=== PATIENT | female | born 1955 | race Caucasian/White ===

== ENCOUNTER → 2020-04-01 14:20 | Outpatient (CLI) | payer BC, SELFPAY ==
--- NOTE | ~2020-04-01 | MM_ITS ---
EXAMINATION: MM screening [place] BI w scott HISTORY: Screening mammogram TECHNIQUE: Craniocaudal and mediolateral oblique 3-D tomosynthesis images were obtained and synthetic 2-D images were generated. CAD analysis was submitted and interpreted. COMPARISON: 03/12/2019, 01/24/2018, 12/29/2016 bilateral digital screening mammogram examinations BREAST PARENCHYMAL COMPOSITION: There are scattered areas of fibroglandular density. FINDINGS: There is asymmetry in the anterior upper right breast on screening MLO view. Diagnostic rig ht mammogram is recommended, with ultrasound if required. Otherwise there Is no evidence of suspicious mass, calcification, or architectural distortion to sugg est malignancy in either breast. There has been no other suspicious interval change. Occasional benig n calcifications. IMPRESSION: 1. Upper anterior right breast mammographic asymmetry on MLO view 2. Diagnostic right mammogram is recommended, with ultrasound if required. BI-RADS Category 0: Incomplete: Needs additional imaging evaluation. Reviewed, dictated and finalized at location A.
== END ==
PROVIDERS: PCP Internal Medicine; Visit Provider Obstetrics & Gynecology Gynecology
DX: Z12.31 Encounter for screening mammogram for malignant neoplasm of breast (principal); R92.8 Other abnormal and inconclusive findings on diagnostic imaging of breast
CPT/HCPCS: 77063; 77067

== ENCOUNTER → 2020-04-21 09:25 | Outpatient (CLI) | payer BC, SELFPAY ==
--- NOTE | ~2020-04-21 | MMUS_ITS ---
EXAMINATION: MM diagnostic mammo unilat RT, US breast RT limited HISTORY: Follow-up right breast asymmetry TECHNIQUE: Additional 3-D tomosynthesis images of the right breast were performed and synthetic 2-D i mages were generated. CAD analysis was submitted and interpreted. High resolution Limited right breas t ultrasound was performed. COMPARISON: Comparison to multiple prior studies sequentially, with oldest reviewed study dated 03/2016. BREAST PARENCHYMAL COMPOSITION: Breast composed of scattered areas of fibroglandular density. FINDINGS: MAMMOGRAPHIC FINDINGS: There are no suspicious masses, calcifications or architectural distortion in the right breast to sug gest malignancy. Limited right breast ultrasound: At 11:00, 6 cm from the nipple there is an oval circumscribed slight ly hyperechoic mass with internal septations measuring up to 1.2 cm, compatible with lipoma. At 12:00 , 6 cm from the nipple there is a 4 mm cyst. No suspicious masses to suggest malignancy. IMPRESSION: 1. No evidence for malignancy in the right breast. 2. Routine yearly screening mammogram and regular clinical breast examination are recommended. BI-RADS Category 2: Benign finding(s). Reviewed, dictated and finalized at location A. IMPRESSION: 1. No evidence for malignancy in the right breast. 2. Routine yearly screening mammogram and regular clinical breast examination a re recommended. BI-RADS Category 2: Benign finding(s).
== END ==
PROVIDERS: PCP Internal Medicine; Visit Provider Obstetrics & Gynecology Gynecology
DX: R92.8 Other abnormal and inconclusive findings on diagnostic imaging of breast (principal)
CPT/HCPCS: 76642; 77065

== ENCOUNTER → 2020-11-19 03:52 | Outpatient (CLI) | payer OTHER, SELFPAY ==
[2020-11-19 19:37] LABS: SARS-CoV-2 RNA PCR Negative
== END ==
PROVIDERS: PCP Internal Medicine; Visit Provider Obstetrics & Gynecology Gynecology
DX: Z20.822 Contact with and (suspected) exposure to COVID-19 (principal)
CPT/HCPCS: C9803; U0003; U0005

== ENCOUNTER 2020-11-22 01:47 | Day surgery (SDC) | payer OTHER, SELFPAY ==
[2020-11-11 11:32] VITALS: BMI 31.6
[2020-11-22 06:27] VITALS: BP 121/75; PULSE 76; RESP 16; TEMP 36.1; O2SAT 98
[2020-11-22] MEDS: ACETAMINOPHEN 500 MG TABLET 1000 MG PO (06:46)
--- NOTE | 2020-11-22 06:48 | P.PNAN_ITS ---
Anes - Initial Pre Proc Eval Procedure: Operation Date: 11/22/20 07:30 Proposed Procedures p Hysteroscopy, Dilation and Curettage - Lala Urbina MD Date/Time: 11/22/20 06:48 Surgeon: Lala Urbina MD Pre Op Diagnosis: thickened endometrium Patient Data Age: 65 Gender: F Height: 1.83 m Weight: 104.7 kg Last Vital Signs Temp 36.1 C L 11/22/20 06:27 Pulse 76 11/22/20 06:27 Resp 16 11/22/20 06:27 BP 121/75 11/22/20 06:27 Pulse Ox 98 11/22/20 06:27 Allergies Allergy/AdvReac Type Severity Reaction Status Date / Time oxycodone [From Percocet] AdvReac Intermediate Nausea Verified 11/11/20 11:28 Penicillins AdvReac Mild Other Verified 11/11/20 11:28 Home Medications Medication Instructions Recorded Confirmed Type No Home Medications 11/11/20 11/22/20 History Patient hx anesthesia problems: none Family hx anesthesia problems: none [facility] Past Medical History Medical History (Updated 11/22/20 @ 06:50 by Henry Payne MD) Endometriosis Obesity MILLY on CPAP Osteoarthritis Social History Social History Smoking status: Never smoker Alcohol intake: current Drinks per week: 2 Substance use: never Substance use type: does not use Living arrangements: with family Spiritual care concerns: No Anes - Eval Final PreProcedure Day of Procedure 11/22/20 06:48 Patient weight: overweight Heart: regular rate and rhythm Lungs: clear to auscultation and normal air movement Airway: Mallampati scale class II Neurological: alert and oriented Last oral intake: >/= 8 hours ASA classification: II Emergent: no Anesthetic plan: proceed Anesthesia type and monitoring: general GIVS and LMA Informed Consent: The patient's anesthetic plan and its attendant risks and benefits were discussed with the patient/family/POA. Questions were solicited and answers provided to the satisfaction of the patient/family/POA.
[2020-11-22] MEDS: LACTATED RINGERS 1,000 ML 30 ML IV CONT (07:01)
--- NOTE | 2020-11-22 07:10 | P.HP_ITS ---
History of Present Illness History of Present Illness Consent: Risks, benefits, and alternatives have been discussed and questions answered. Patient agrees to proceed with procedure. Chief complaint: thickened endometrium Narrative: Getachew Thomas is a 65 year old female who was admitted for a kandice rectal abscess. The patient had a CT scan at that time which revealed a thickened endometrium of 16mm. The patient states she has had no vaginal bleeding. Is recommended to further evaluate with hysteroscopy D&C. Risks of infection, bleeding, the and perforation were reviewed. Possible pathology was discussed with the patient. The potential for inability to enter the cervix due to severe stenosis of the vagina and cervix was also reviewed. Patient voices understanding and agrees to proceed. [facility] Past Medical History Medical History (Updated 11/22/20 @ 07:16 by Lala Urbina MD) Endometriosis (normal spontaneous vaginal delivery) x2 Obesity MILLY on CPAP Osteoarthritis Surgical History Surgical History (Updated 11/22/20 @ 07:14 by Lala Urbina MD) S/P eye surgery detached left retina retinal tear right cataracts S/P laparoscopy x 3 Social History Social History Smoking status: Never smoker Alcohol intake: current Drinks per week: 2 Substance use: never Substance use type: does not use Living arrangements: with family Spiritual care concerns: No Meds Home Medications and Allergies Home Medications Medication Instructions Recorded Confirmed Type No Home Medications 11/11/20 11/22/20 History Allergies Allergy/AdvReac Type Severity Reaction Status Date / Time oxycodone [From Percocet] AdvReac Intermediate Nausea Verified 11/11/20 11:28 Penicillins AdvReac Mild Other Verified 11/11/20 11:28 Vital Signs Vital Signs - 24 hr 11/22/20 06:27 Temperature 97 F L Pulse Rate 76 Respiratory Rate 16 Blood Pressure 121/75 Pulse Oximetry 98 Exam Const: General: healthy appearing and alert Orientation/consciousness: patient oriented x3 Resp: Effort & Inspection: normal respiratory effort Auscultation: clear to auscultation bilaterally Cardio: Rate: regular rate Rhythm: regular rhythm GI: GI Palp: Yes Soft to palpation, No Tenderness to palpation present (GI) and No Palpable mass present : External Female Exam: normal external appearance Speculum Exam - Vagin a: vagina atrophic (very hard to open speculum) Speculum Exam - Cervix: normal palpation Bimanual exam- vagina & uterus: uterine size normal and consistency normal Bimanual Exam- Adnexa, other: normal adnexae and No adnexal tenderness Neuro: General: patient oriented x3 Assessment and Plan Assessment and plan (1) Thickened endometrium: Code(s): R93.89 - Abnormal findings on diagnostic imaging of other specified body structures Status: Acute Assessment and Plan: Plan to proceed with hysteroscopy and D&C
--- NOTE | 2020-11-22 07:16 | WPDHPUPDATE1 ---
History and Physical Update Update Date/Time: 11/22/20 07:16 History and Physical has been reviewed, including an updated exam of the patient. There are NO changes in the patient's condition. Risks, benefits, and alternatives have been discussed and questions answered. Patient agrees to proceed with procedure.
--- NOTE | 2020-11-22 08:13 | PM.PROC ---
Procedure Note - Detailed Date of procedure: 11/22/20 Pre-op diagnosis: thickened endometrium Post-op diagnosis: same Procedure performed: D and C hysteroscopy with MyoSure resection of polyp Description of procedure: The patient was taken to the operating room and placed in the dorsal lithotomy position. She was prepped and draped in the usual sterile fashion. A bivalve speculum was placed in the vagina and the cervix is grasped on the anterior lip with a tenaculum. The external cervix has a 2 endocervical polyps that are removed with a ring forceps. The uterus is sounded to 9 in have cm. The cervix is serially dilated with Hegar. The diagnostic hysteroscope was placed with the stated findings below. The MyoSure device was opened and placed and the polyp was removed in its entirety. The hysteroscope was removed and the sharp curette used to curette the endometrium until a good uterine cry is noted on all areas. Minimal material is obtained during that process consistent with the atrophic appearance of the remainder of the endometrium. All instruments are removed. Sponge, instrument, and needle counts are correct per the OR staff. Anesthesia: MAC and local Surgeon: Lala Urbina MD Estimated blood loss (mL): 5 Drains: No Packing: No Pathology: yes (Endometrial shavings and curettings; endocervical polyps) Complications: No immediate complications Condition: stable Disposition: PACU Findings: 2 polyps at 9:00 on the cervix; large polyp arising from the right mid fundus filling the entire cavity. Remainder of the endometrium appears atrophic
[2020-11-22 08:14] VITALS: BP 114/63; PULSE 77; RESP 16; O2SAT 97
[2020-11-22 08:50] VITALS: BP 123/72; PULSE 64; RESP 16
[2020-11-22 09:05] VITALS: BP 116/71; PULSE 60; RESP 16
== END 2020-11-22 09:21 | disposition home or self-care (01) ==
PROVIDERS: PCP Internal Medicine; Visit Provider Obstetrics & Gynecology Gynecology
PROC: 0U5B8ZZ Destruction of Endometrium, Via Natural or Artificial Opening Endoscopic (ICD-10-PCS; CPT 58563; principal; 2020-11-22 07:30)
DX: N84.0 Polyp of corpus uteri (principal); G47.33 Obstructive sleep apnea (adult) (pediatric); M19.90 Unspecified osteoarthritis, unspecified site; E66.9 Obesity, unspecified; Z68.31 Body mass index [BMI] 31.0-31.9, adult
CPT/HCPCS: 58558; 88305; A9270; J2250; J2704; J3010; J7030; J7120

== ENCOUNTER → 2021-04-05 09:48 | Outpatient (CLI) | payer OTHER, SELFPAY ==
--- NOTE | ~2021-04-05 | MM_ITS ---
EXAMINATION: MM screening [place] BI w [facility]ott HISTORY: Screening TECHNIQUE: Craniocaudal and mediolateral oblique 3-D tomosynthesis images were obtained and synthetic 2-D images were generated. CAD analysis was submitted and interpreted. COMPARISON: Comparison to multiple prior studies sequentially, with oldest reviewed study dated 12/29. BREAST PARENCHYMAL COMPOSITION: There are scattered areas of fibroglandular density. FINDINGS: There is no evidence of suspicious mass, calcification, or architectural distortion to sugg est malignancy in either breast. There has been no suspicious interval change. IMPRESSION: 1. No mammographic evidence of malignancy. 2. Recommend routine screening mammography in one year. BI-RADS Category 1: Negative Reviewed, dictated and finalized at location A.
--- NOTE | ~2021-04-05 | DEXA_ITS ---
Bone Density Report Name: Getachew Thomas Age: 65 Sex: Female Ethnicity: White Date of : 1955 Indication: monitoring treatment; postmenopausal Referring Provider: AURORA FIGUEREDO Study: Bone densitometry was performed. Exam Date: April 05, 2021 Accession number: [id number] Bone Density: Region BMD T-score Z-score Classification AP Spine (L1-L4) 0.909 -1.3 0.5 Osteopenia Femoral Neck (Left) 0.727 -1.1 0.4 Osteopenia Total Hip (Left) 0.818 -1.0 0.2 Normal Femoral Neck (Right) 0.715 -1.2 0.3 Osteopenia Total Hip (Right) 0.837 -0.9 0.3 Normal Total Hip Mean 0.828 -1.0 0.3 Normal World Health Organization criteria for BMD impression classify patients as: Normal (T-score at or above -1.0), Osteopenia (T-score between -1.0 and -2.5), or Osteoporosis (T-score at or below -2.5). 10-year Fracture Risk: FRAX not reported because: Treated for osteoporosis Previous Exams: Region Exam Age BMD T-score BMD Change BMD Change Date g/cm2 vs Baseline vs Previous AP Spine(L1-L4) 04/05/2021 65 0.909 -1.3 -0.082 -0.023* 01/14/2018 62 0.932 -1.0 -0.059 0.027 12/16/2015 60 0.905 -1.3 -0.085* 0.005 10/14/2013 58 0.900 -1.3 -0.091* -0.091* 08/27/2009 54 0.991 -0.5 Total Hip(Left) 04/05/2021 65 0.818 -1.0 -0.047 -0.035* 01/14/2018 62 0.853 -0.7 -0.011 0.012 12/16/2015 60 0.841 -0.8 -0.024 0.017 10/14/2013 58 0.824 -1.0 -0.041* -0.041* 08/27/2009 54 0.865 -0.6 Total Hip(Right) 04/05/2021 65 0.837 -0.9 -0.061 -0.029* 01/14/2018 62 0.866 -0.6 -0.032 -0.021 12/16/2015 60 0.887 -0.5 -0.011 0.059* 10/14/2013 58 0.828 -0.9 -0.071* -0.071* 08/27/2009 54 0.898 -0.4 *Denotes significance at 95% confidence level, LSC for AP Spine = 0.022 g/cm2, LSC for Total Hip = 0.027 g/cm2 Clinical Information Provided by Patient: Is being treated for osteoporosis Has used the following medications: Evista (i.e. raloxifene), Vitamin D, MTV Patient maximum height was 72.0 Menopause Age: 55 No regular weight bearing exercise Drinks caffeinated beverages Onset of menses at age 17 Number of children 2 Missed period for more than 6 months in a row Impression: The patient has low bone mass, based on the
== END ==
PROVIDERS: Visit Provider Obstetrics & Gynecology Gynecology
DX: Z12.31 Encounter for screening mammogram for malignant neoplasm of breast (principal); Z78.0 Asymptomatic menopausal state; M85.88 Other specified disorders of bone density and structure, other site; M85.851 Other specified disorders of bone density and structure, right thigh; M85.852 Other specified disorders of bone density and structure, left thigh
CPT/HCPCS: 77063; 77067; 77080

== ENCOUNTER → 2022-10-04 11:02 | Outpatient (CLI) | payer MEDICARE, SELFPAY ==
--- NOTE | ~2022-10-04 | MM_ITS ---
EXAMINATION: MM screening [place] BI w scott HISTORY: Screening TECHNIQUE: Craniocaudal and mediolateral oblique 3-D tomosynthesis images were obtained and synthetic 2-D images were generated. CAD analysis was submitted and interpreted. COMPARISON: Comparison to multiple prior studies sequentially, with oldest reviewed study dated 12/29. BREAST PARENCHYMAL COMPOSITION: Breast composed of scattered areas of fibroglandular density FINDINGS: There is no evidence of suspicious mass, calcification, or architectural distortion to sugg est malignancy in either breast. There has been no suspicious interval change. IMPRESSION: 1. No mammographic evidence of malignancy. 2. Recommend routine screening mammography in one year. BI-RADS Category 1: Negative Reviewed, dictated and finalized at location A.
== END ==
PROVIDERS: PCP Internal Medicine; Visit Provider Obstetrics & Gynecology Gynecology
DX: Z12.31 Encounter for screening mammogram for malignant neoplasm of breast (principal)
CPT/HCPCS: 77063; 77067

== ENCOUNTER 2023-10-08 13:16 | Outpatient (CLI) | payer MEDICARE, SELFPAY ==
--- NOTE | ~2023-10-08 | DEXA_ITS ---
Bone Density Report Name: Getachew Thomas Age: 68 Sex: Female Ethnicity: White Date of : 1955 Indication: osteopenia; monitoring treatment; postmenopausal Referring Provider: AURORA FIGUEREDO Study: Bone densitometry was performed. Exam Date: October 08, 2023 Accession number: [id number] Bone Density: Region BMD T-score Z-score Classification AP Spine (L1, L2, L3) 0.868 -1.4 0.5 Osteopenia Femoral Neck (Left) 0.727 -1.1 0.5 Osteopenia Total Hip (Left) 0.808 -1.1 0.2 Osteopenia Femoral Neck (Right) 0.719 -1.2 0.5 Osteopenia Total Hip (Right) 0.834 -0.9 0.5 Normal Total Hip Mean 0.821 -1.0 0.4 Normal World Health Organization criteria for BMD impression classify patients as: Normal (T-score at or above -1.0), Osteopenia (T-score between -1.0 and -2.5), or Osteoporosis (T-score at or below -2.5). 10-year Fracture Risk: FRAX not reported because: Treated for osteoporosis Previous Exams: Region Exam Age BMD T-score BMD Change BMD Change Date g/cm2 vs Baseline vs Previous AP Spine(L1, L2, L3) 10/08/2023 68 0.868 -1.4 -0.088 0.010 04/05/2021 65 0.858 -1.5 -0.098 -0.019 01/14/2018 62 0.877 -1.3 -0.079 0.030 12/16/2015 60 0.846 -1.6 -0.109* -0.004 10/14/2013 58 0.850 -1.5 -0.105* -0.105* 08/27/2009 54 0.956 -0.6 Total Hip(Left) 10/08/2023 68 0.808 -1.1 -0.057 -0.010 04/05/2021 65 0.818 -1.0 -0.047 -0.035* 01/14/2018 62 0.853 -0.7 -0.011 0.012 12/16/2015 60 0.841 -0.8 -0.024 0.017 10/14/2013 58 0.824 -1.0 -0.041* -0.041* 08/27/2009 54 0.865 -0.6 Total Hip(Right) 10/08/2023 68 0.834 -0.9 -0.065 -0.004 04/05/2021 65 0.837 -0.9 -0.061 -0.029* 01/14/2018 62 0.866 -0.6 -0.032 -0.021 12/16/2015 60 0.887 -0.5 -0.011 0.059* 10/14/2013 58 0.828 -0.9 -0.071* -0.071* 08/27/2009 54 0.898 -0.4 *Denotes significance at 95% confidence level, LSC for AP Spine = 0.022 g/cm2, LSC for Total Hip = 0.027 g/cm2 Clinical Information Provided by Patient: Is being treated for osteoporosis Has used the following medications: Evista (i.e. raloxifene), Vitamin D, MTV Patient maximum height was 72.0 Menopause Age: 55 No regular weight bearing exercise Drinks caffeinated beverages
--- NOTE | ~2023-10-08 | MM_ITS ---
EXAMINATION: MM screening [place] BI w scott HISTORY: Screening TECHNIQUE: Craniocaudal and mediolateral oblique 3-D tomosynthesis images were obtained and synthetic 2-D images were generated. CAD analysis was submitted and interpreted. COMPARISON: Comparison to multiple prior studies sequentially, with oldest reviewed study dated 03/2018. BREAST PARENCHYMAL COMPOSITION: Not dense: There are scattered areas of fibroglandular density. FINDINGS: There is a new mass in the outer aspect of the right breast. The left breast is stable with out evidence for malignancy. IMPRESSION: 1. New right breast mass, outer half, seen on CC view only. 2. Additional mammographic views and possible breast ultrasound are recommended. BI-RADS Category 0: Incomplete: Needs additional imaging evaluation. Reviewed, dictated and finalized at location A. IMPRESSION: 1. New right breast mass, outer half, seen on CC view only. 2. Additional mammographic views and possible breast ultrasound are recommended . BI-RADS Category 0: Incomplete: Needs additional imaging evaluation.
== END 2023-10-08 13:17 ==
PROVIDERS: PCP Internal Medicine; Visit Provider Obstetrics & Gynecology Gynecology
DX: Z12.31 Encounter for screening mammogram for malignant neoplasm of breast (principal); Z78.0 Asymptomatic menopausal state; R92.8 Other abnormal and inconclusive findings on diagnostic imaging of breast; M85.88 Other specified disorders of bone density and structure, other site; M85.852 Other specified disorders of bone density and structure, left thigh; M85.851 Other specified disorders of bone density and structure, right thigh
CPT/HCPCS: 77063; 77067; 77080

== ENCOUNTER 2023-10-16 14:13 | Outpatient (CLI) | payer MEDICARE, SELFPAY ==
--- NOTE | ~2023-10-16 | MMUS_ITS ---
EXAMINATION: MM diagnostic [place] RT w scott, US breast RT limited HISTORY: New outer right breast mass visualized on 10/08/2023 craniocaudal screening mammogram. TECHNIQUE: Additional 3-D tomosynthesis images of the right breast were performed and synthetic 2-D i mages were generated. CAD analysis was submitted and interpreted. High resolution upper outer and low er-outer quadrant right breast ultrasound was performed. COMPARISON: October 08, 2023 bilateral screening mammogram FINDINGS: MAMMOGRAPHIC FINDINGS: An approximately 7 mm circumscribed low-density opacity is confirmed in the outer mid right breast. ULTRASOUND: 10:00 7 cm from nipple: Oval parallel circumscribed 4.6 x 7 x 7.6 mm sonolucency with through transmi ssion posterior enhancement, consistent with simple cyst, corresponding to the mammographic finding. IMPRESSION: 1. Benign finding: Benign 7.6 mm cyst at 10:00 7 cm from nipple 2. Routine annual mammographic screening is recommended BI-RADS Category 2: Benign finding(s). Reviewed, dictated and finalized at location A. IMPRESSION: 1. Benign finding: Benign 7.6 mm cyst at 10:00 7 cm from nipple 2. Routine annual mammographic screening is recommended BI-RADS Category 2: Benign finding(s).
== END 2023-10-16 14:14 ==
PROVIDERS: PCP Internal Medicine; Visit Provider Obstetrics & Gynecology Gynecology
DX: R92.8 Other abnormal and inconclusive findings on diagnostic imaging of breast (principal)
CPT/HCPCS: 76642; 77061; 77065; G0279

== ENCOUNTER 2024-12-18 13:15 | Outpatient (CLI) | payer MEDICARE, SELFPAY ==
--- NOTE | ~2024-12-18 | MM_ITS ---
EXAMINATION: MM screening [place] BI w scott HISTORY: Screening TECHNIQUE: Craniocaudal and mediolateral oblique 3-D tomosynthesis images were obtained and synthetic 2-D images were generated. CAD analysis was submitted and interpreted. COMPARISON: Comparison to multiple prior studies sequentially, with oldest reviewed study dated 04/01. BREAST PARENCHYMAL COMPOSITION: There are scattered areas of fibroglandular density. FINDINGS: There is no evidence of suspicious mass, calcification, or architectural distortion to sugg est malignancy in either breast. There has been no suspicious interval change. IMPRESSION: 1. No mammographic evidence of malignancy. 2. Recommend routine screening mammography in one year. BI-RADS Category 1: Negative Reviewed, dictated and finalized at location B.
== END 2024-12-18 13:16 | disposition home or self-care (01) ==
LOC: MICIMG 13:16
PROVIDERS: PCP Internal Medicine; Visit Provider Obstetrics & Gynecology Gynecology
DX: Z12.31 Encounter for screening mammogram for malignant neoplasm of breast (principal)
CPT/HCPCS: 77063; 77067